=== PATIENT | female | born 1965 | race Caucasian/White ===

== ENCOUNTER 2021-05-05 16:56 | Emergency (ER) | payer BC, SELFPAY ==
[2021-05-05 18:00] VITALS: BP 156/89; PULSE 92; RESP 21; TEMP 36.6; O2SAT 98; BMI 35.1
--- NOTE | 2021-05-05 18:29 | HMH.EDUTC ---
[facility] [place] Disposition Clinical Impression: Viral upper respiratory tract infection with cough, Exposure to COVID-19 virus Disposition: Home, Self-Care Condition on Discharge: Good Instructions: Cough, DI for Viral Upper Respiratory Infection -- Adult, DI for COVID-19 (Suspected or Confirmed ), Preventing the Spread of Coronavirus Discharge Instructions Additional Instructions: *Monitor Temp, Over the counter Motrin or Tylenol as directed/as needed Tylenol every 4 hours and Motrin every 6 hours (as long as your family doctor has told you that you can take it) for fever or pain. and straight to ER if unable to lower temp less than 101.0 after medication given *Warm salt water gargles may help to soothe the throat *Throat Lozenges *Warm fluids like tea with honey may help to soothe the throat *Sleep elevated *Humidifier/Vaporizer Take cough medication as prescribed for cough Use inhaler as prescribed Continue taking bactrim as prescribed Follow up IMMEDIATELY for new or worsening symptoms or no Noticeable improvement over the next 48-72 hours. 911 for difficulty breathing or swallowing You were tested for today for COVID19 your test result should be back in the next 24-72 hours, you may check your results on the [facility] If you have trouble logging on you may call support If you are positive someone from the Hospital will be calling you Make sure to take your Vitamins Vit. C Vit D and Zinc if you can take them Prescriptions: methylPREDNISolone [Medrol 4mg tab] 4 mg PO DIRECTED #21 tab Transmission Status: Received by [facility] Promethazine/Dextromethorphan [Promethazine-Dm Syrup] 2.5 - 5 ml PO Q6H PRN #60 ml PRN Reason: Cough Transmission Status: Received by [facility] Referrals: Ivon Vance [Primary Care Provider] - As needed Time of Disposition: 18:46 Medical Decision Making - Rob Inquiry Pt receiving controlled substance: No Rob was queried for this patient: No Vital Signs: 05/05/21 18:00 05/05/21 18:55 Temperature 97.8 F 97.8 F Temperature Source Oral Pulse Rate 92 H Pulse Rate [Left Brachial] 92 H Respiratory Rate 21 21 Blood Pressure 156/89 H Blood Pressure [Left Arm] 156/89 H Blood Pressure Mean [Left Arm] 111 Blood Pressure Source [Left Arm] Automatic Cuff Blood Pressure Position [Left Arm] Sitting 02 Sat by Pulse Oximetry 98 Oxygen Delivery Method Room Air Orders (Tests/Meds): ORDERS Category Date Time Status Covid-19 Nasal PCR ([facility]) Routine Lab 05/05/21 18:02 Received Medical Decision Narrative: Patient states that she has take Prometh DM and medrol without complications or reactions [facility] [place] HPI - General Stated complaint: covid test/treatd for symptoms Time Seen by Provider: 05/05/21 18:38 Mode of Arrival: Ambulatory Source of Information: Patient Limitations: No Limitations Description of Symptoms (Recalled from Triage Doc. by RN): PATIENT C/O COUGH, CONGESTION, BILATERAL EAR PAIN AND HEADACHE X 2 DAYS. RECENTLY EXPOSED TO COVID HEENT Symptoms (Recalled from RN notes): Yes Resp Symptoms (Recalled from RN notes): Yes Skin Symptoms (Recalled from RN notes): No MS Symptoms (Recalled from RN notes): No Functional Status (Recalled from RN notes): WNL - History of Present Illness Provider Complaint: Patient state that she has been caring for her elderly mother that is positive for COVID States that she hasnt been feeling well with bodyaches, chills, nasal congestion and cough States that she was on Doxy 2 weeks ago after she was seen for something else States that she came in States that she is out of her cough medication and it was helping some with her cough States that she is currently taking bactrim for Chronic sinusitis - Related Data Previous Rx's Medication Instructions Recorded Promethazine/Dextromethorphan 2.5 - 5 ml PO Q6H PRN #60 ml 05/05/21 [Promethazine-Dm Syrup] methylPREDNISolone [Medrol 4mg 4 mg PO D
[2021-05-05 18:55] VITALS: BP 156/89; PULSE 92; RESP 21; TEMP 36.6; O2SAT 98
== END 2021-05-05 19:00 | disposition home or self-care (01) ==
PROVIDERS: Emergency Provider Nurse Practitioner; PCP Internal Medicine
DX: U07.1 COVID-19 (principal); J06.9 Acute upper respiratory infection, unspecified
CPT/HCPCS: 99202; C9803; G0463; U0003; U0005

== ENCOUNTER 2022-08-30 12:30 | Emergency (ER) | payer BC, SELFPAY ==
[2022-08-30 12:45] VITALS: BP 130/82; PULSE 105; RESP 22; TEMP 36.9; O2SAT 98; BMI 31.6
[2022-08-30 13:02] LABS: UTC Strep Screen (Rapid) Negative (Negative)
--- NOTE | 2022-08-30 13:44 | EXP.UTC ---
Discharge Plan Disposition Patient Disposition: Home, Self-Care Condition: Good Prescriptions Prescriptions: New methylprednisolone [Medrol (Pipo)] 4 mg tablets,dose pack See Rx Instructions .Route .COMPLEX 6 Days Qty: 21 0RF Rx Instructions: taper pack; cefdinir 300 mg capsule 300 mg PO BID Qty: 20 0RF ofloxacin 0.3 % drops See Rx Instructions .ROUTE .COMPLEX 7 Days Qty: 10 0RF Rx Instructions: put 1-2 drps into affected eye(s) every 2-4 h x 2 days, then 1-2 drps 4 times/day days 3-7 Referrals Follow up/Referrals: Christian Saha [Primary Care Provider] - See instructions Activity Restrictions/Add. Instructions Additional Instructions/Restrictions: Do not wear contacts until eyes clear Follow up with your Eye Doctor if no improvement or any worsening of symptoms Wash hands before and after applying eye drops Take oral medication as prescribed Follow up with your Family Doctor if no improvement Clinical Impressions Clinical Impression: Otitis media Stand Alone Forms Stand Alone Forms: Work/School Release Instructions Patient Instructions: DI for Conjunctivitis, Conjunctivitis, Middle Ear Infection Discharge ED Provider: Jada Martinez [facility] General Stated complaint: Eye redness w/drainage, congestion Mode of Arrival: Ambulatory Source of Information: Patient Limitations: No Limitations Time Seen by Provider: 08/30/22 13:44 Description of Symptoms (Recalled from Triage Doc. by RN): PATIENT C/O REDNESS/DRAINAGE FROM RIGHT EYE, EAR PAIN, AND SINUS CONGESTION THAT STARTED SEVERAL DAYS AGO HEENT Symptoms (Recalled from RN notes): Yes Resp Symptoms (Recalled from RN notes): No Skin Symptoms (Recalled from RN notes): No MS Symptoms (Recalled from RN notes): No Functional Status (Recalled from RN notes): WNL History of Present Illness Provider Complaint: Patient states that she has been having sinus congestion and pressure, redness and drainage from her right eye that has since started in her left and bilateral ear pain and pressure that has continued to get worse States that today she was still not feeling any better so she came in to get checked Related Data Previous Rx's Medication Instructions Recorded cefdinir 300 mg capsule 300 mg PO BID #20 caps 08/30/22 methylprednisolone 4 mg tablets in See Rx Instructions .Route 08/30/22 a dose pack (Medrol (Pipo)) .COMPLEX 6 days #21 tabs ofloxacin 0.3 % eye drops See Rx Instructions ophthalmic 08/30/22 (eye) .COMPLEX 7 days #10 mL Allergies Allergy/AdvReac Type Severity Reaction Status Date / Time erythromycin base Allergy Verified 08/30/22 13:00 Penicillins Allergy Verified 05/05/21 18:21 Worker's Comp Is this a Worker's Comp case?: No [facility] Disclaimer: The information contained in this section may have been updated after the patient was seen, as this information can be updated by other users. Social History Smoking Status: Unknown if ever smoked alcohol intake: never current occupational status: employed Travel in the last 8 weeks: None ROS Obtained: Yes All systems reviewed & no additional complaints except as documented and Yes Systems reviewed as appropriate & no additional complaints except as documented Constitutional Constitutional: Reports system reviewed and no additional complaints, except as documented, Reports as per HPI and Reports headache(s) Eyes Eyes: Reports system reviewed and no additional complaints, except as documented, Reports as per HPI, Reports eye discharge and Reports irritation (both) ENT Ears, Nose, Mouth, and Throat: Reports system reviewed and no additional complaints, except as documented, Reports as per HPI, Reports otalgia, Reports headache(s), Reports sinus pain, Reports sinus pressure and Reports sore throat Cardiovascular Cardiovascular: Reports system reviewed and no additional complaints, except as documented and Reports as per HPI Respiratory Respiratory: Reports
[2022-08-30 13:55] VITALS: BP 130/82; PULSE 105; RESP 22; TEMP 36.9; O2SAT 98
== END 2022-08-30 14:01 | disposition home or self-care (01) ==
PROVIDERS: Emergency Provider Nurse Practitioner; PCP Family Medicine
DX: H66.93 Otitis media, unspecified, bilateral (principal); H10.33 Unspecified acute conjunctivitis, bilateral; R09.81 Nasal congestion
CPT/HCPCS: 87880; 99212; 99214; G0463